=== PATIENT | female | born 1975 | race African-American/Black ===

== ENCOUNTER 2019-08-01 13:35 | Outpatient (RCR) | payer OTHER, SELFPAY ==
[2019-08-01 15:24] LABS: Beta HCG Quantitative 71.21 mIU/ML
== END 2019-10-30 23:59 | disposition home or self-care (01) ==
LOC: ANHLAB 13:35
PROVIDERS: Visit Provider Advanced Practice Midwife
DX: O20.0 Threatened abortion (principal); Z3A.00 Weeks of gestation of pregnancy not specified
CPT/HCPCS: 36415; 84702

== ENCOUNTER 2019-08-13 14:30 | Outpatient (CLI) | payer SELFPAY ==
[2019-08-13 15:34] LABS: Beta HCG Quantitative < 2.39 mIU/ML
== END 2019-08-13 14:31 | disposition home or self-care (01) ==
PROVIDERS: Visit Provider Obstetrics & Gynecology
DX: O02.1 Missed abortion (principal); Z3A.00 Weeks of gestation of pregnancy not specified
CPT/HCPCS: 36415; 84702